=== PATIENT | female | born 1940 | race Caucasian/White ===

== ENCOUNTER 2017-09-20 10:46 | Emergency (ER) | payer OTHER ==
[~2017-09-20] VITALS: Ht 177.8 cm; Wt 83.9 kg
[2017-09-20] MEDS ORDERED: ALDACTONE25 MG (10:54)
[2017-09-20] MEDS ORDERED: COREG CR10 MG (10:54)
[2017-09-20] MEDS ORDERED: XARELTO20 MG (10:54)
[2017-09-20] MEDS ORDERED: LASIX20 MG (10:54)
[2017-09-20] MEDS ORDERED: ALTACE2.5 MG (10:54)
[2017-09-20] MEDS ORDERED: LUTEIN20 MG (10:55)
[2017-09-20] MEDS ORDERED: PROTONIX40 M1 (10:55)
[2017-09-20] MEDS ORDERED: CALCI-CHEW500 MG (10:55)
[2017-09-20] MEDS ORDERED: SINGULAIR 10MG10 MG (10:55)
[2017-09-20] MEDS ORDERED: LIPITOR20 MG (10:55)
[2017-09-20] MEDS ORDERED: ISOSORBIDE DINI20 MG PO (10:56)
[2017-09-20] MEDS ORDERED: D3 + K2 DOTS 11 EACH (10:56)
[2017-09-20] MEDS ORDERED: NEURONTIN300 MG (10:56)
[2017-09-20] MEDS ORDERED: PROSCAR5 MG (10:56)
== END 2017-09-20 14:29 | disposition home or self-care (01) ==
LOC: ER 10:46
DX: R55 Syncope and collapse (principal); L08.89 Other specified local infections of the skin and subcutaneous tissue; T80.211A Bloodstream infection due to central venous catheter, initial encounter; T42.8X5A Adverse effect of antiparkinsonism drugs and other central muscle-tone depressants, initial encounter